=== PATIENT | male | born 1970 | race Caucasian/White ===

== ENCOUNTER 2018-05-06 14:00 | Outpatient (CLI) | payer OTHER ==
[~2018-05-06 14:00] MED LIST: ALBU8.5H2 IH; ALLO300T2 PO; DICY10CA26 PO; HYDR-3720 PO; OXYC-199 PO; PANT20TA2 PO; SCR1T1 PO; TRM50T PO
== END 2018-05-06 14:30 | disposition home or self-care (01) ==
LOC: SLEEP 14:00
PROVIDERS: ATTEND Nurse Practitioner Family
DX: G47.33 Obstructive sleep apnea (adult) (pediatric) (principal)

== ENCOUNTER 2019-07-27 13:32 | Emergency (ER) | payer OTHER ==
[~2019-07-27] VITALS: Ht 177.8 cm; Wt 136.3 kg
[2019-07-27] MEDS ORDERED: SULF1TAB35 PO (13:56)
--- NOTE | 2019-07-27 13:56 | ED General ---
General Chief Complaint: Laceration Stated Complaint: L HAND LAC Nursing Triage Note: PT AMB TO [facility] 10 WITH COMPLAINT OF PUNCTURE WOUND TO LEFT HAND. STATES DRILL BIT WENT INTO LEFT HAND IN BETWEEN THUMB AND POINTER FINGER. DOES NOT KNOW HOW FAR DRILL BIT WENT INTO SKIN. LAST TETANUS SHOT WAS 2 YEARS AGO. Nursing Sepsis Screen: No Definite Risk Source of Information: Patient Exam Limitations: No Limitations History of Present Illness Date Seen by Provider: Jul 27, 2019 Time Seen by Provider: 13:47 Initial Comments This 40-year-old gentleman presents to the emergency room with a puncture wound to his left hand between the first and second fingers. He was using an electric drill when he slipped and jammed the screwdriver bit into his hand. He is uncertain of the depth. He has significant pain in the area. He states range of motion was initially affected, but range of motion seems intact on exam now. He reports tetanus immunization about 2 years ago. Allergies and Home Medications Allergies Coded Allergies: Iodinated Contrast Media - IV Dye (Unverified Allergy, Unknown, RASH, 07/12/14) ITCHING Penicillins (Unverified Allergy, Unknown, 07/28/14) iodine (Unverified Allergy, Unknown, RASH, 07/12/14) Home Medications Albuterol 8.5 Gm Hfa.aer.ad, 1 PUFF IH Q4H PRN, (Reported) PRN ASTHMA Allopurinol 300 Mg Tablet, 300 MG PO DAILY PRN for GOUT PAIN, (Reported) Pantoprazole Sodium 20 Mg Tablet.dr, 40 MG PO DAILY Prescribed by: GENA NGUYỄN on 03/10/15 1119 Sucralfate 1 Gm Tab, 1 GM PO QID Prescribed by: GENA NGUYỄN on 03/10/15 1119 Sulfamethoxazole/Trimethoprim 1 Each Tablet, 1 EACH PO BID Prescribed by: LESTER PAN on 07/27/19 1356 Patient Home Medication List Home Medication List Reviewed: Yes Review of Systems Review of Systems Constitutional: no symptoms reported Musculoskeletal: see HPI Skin: see HPI Psychiatric/Neurological: No Symptoms Reported Past Phccihg-[id number]-[id number] Hx Past Med/Social Hx: Reviewed Nursing Past Med/Soc Hx Patient Social History Alcohol Use: Denies Use Recreational Drug Use: No Smoking Status: Never a Smoker Recent Foreign Travel: No Contact w/Someone Who Travel: No Recent Infectious Disease Expo: No Physical Abuse: No Sexual Abuse: No Fear: No Immunizations Up To Date Date of Influenza Vaccine: Aug 10, 2014 Past Medical History Surgeries: Yes (EXPLORATORY, SINUS RECONSTRUCTION, GB,FACIAL RECONSTRUCTION, DENIZ LEFT FEMUR) Respiratory: Yes (ASTHMA) Asthma Cardiac: No Neurological: No Gastrointestinal: No Gall Bladder Disease Musculoskeletal: No Endocrine: No Cancer: No Psychosocial: No Integumentary: No Blood Disorders: No Physical Exam Vital Signs Vital Signs - First Documented 07/27/19 13:37 Pulse 72 Resp 16 B/P (MAP) 130/86 (101) Pulse Ox 96 O2 Delivery Room Air Capillary Refill : Less Than 3 Seconds Height, Weight, BMI Height: 5'10.00" Weight: 300lbs. oz. [phone]; 43.00 BMI Method: General Appearance: No Apparent Distress, WD/WN HEENT: Normal ENT Inspection Respiratory: Lungs Clear, Normal Breath Sounds, No Accessory Muscle Use Cardiovascular: Regular Rate, Rhythm, No Edema, No Murmur Extremity: Other (puncture wound on the left hand between the first and second finger. No bleeding. Range of motion, sensation, and tendon function are all intact.) Neurologic/Psychiatric: Alert, Oriented x3, No Motor/Sensory Deficits, Normal Mood/Affect, paper hanger II-XII Norm as Tested Skin: Normal Color, Warm/Dry, Other (see above) Progress/Results/Core Measures Suspected Sepsis Recent Fever Within 48 Hours: No Infection Criteria Present: None New/Unexplained Altered Menta: No Sepsis Screen: No Definite Risk SIRS Temperature: Pulse: 72 Respiratory Rate: 16 Blood Pressure 130 /86 Mean: 101 Results/Orders Vital Signs/I&O 07/27/19 07/27/19 13:37 14:02 Pulse 72 72 Resp 16 16 B/P (MAP) 130/86 (101) 130/86 (101) Pulse Ox 96 96 O2 Delivery Room Air Capillary Refill : Less Than 3 Seconds Blood Pressure Mean: 101 Progress Note : Progress Note Patient was given chlorhexidine soap and gauze to scrub his wound. Antibiotics were prescribed for prophylaxis. Departure Impression Primary Impression: Puncture wound of left hand Qualified Codes: S61.432A - Puncture wound without foreign body of left hand, initial encounter Disposition: 01 HOME, SELF-CARE Condition: Stable Departure-Patient Inst. Decision time for Depature: 13:54 Referrals: JAVIER GARVIN DO (PCP) Primary Care Physician DEBORAH ISRAEL (Family) Primary Care Physician Patient Instructions: NO INSTRUCTIONS GIVEN Add. Discharge Instructions: You may use ibuprofen up to 600 mg every 6 hours and/or Tylenol (acetaminophen) up to 1000 mg every 6 hours as needed for pain. Complete the antibiotics as prescribed. 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 Also return to care if you start developing increasing swelling, redness, fever, or puslike drainage. All discharge instructions reviewed with patient and/or family. Voiced understanding. Scripts Sulfamethoxazole/Trimethoprim (Bactrim Ds Tablet) 1 Each Tablet 1 EACH PO BID, #10 TAB Prov: LESTER OTT MD 07/27/19 LESTER OTT MD Jul 27, 2019 13:56
[2019-07-27 14:02] VITALS: BP 130/86
== END 2019-07-27 14:02 | disposition home or self-care (01) ==
LOC: EDUNIT# 13:32 → ER 13:33
DX: S61.432A Puncture wound without foreign body of left hand, initial encounter (principal); J45.909 Unspecified asthma, uncomplicated; Z91.041 Radiographic dye allergy status; Z88.0 Allergy status to penicillin; Z88.8 Allergy status to other drugs, medicaments and biological substances; W29.8XXA Contact with other powered hand tools and household machinery, initial encounter